=== PATIENT | female | born 1940 | race Caucasian/White ===

== ENCOUNTER 2020-06-07 12:38 | Outpatient (CLI) | payer MEDICARE, SELFPAY ==
--- NOTE | ~2020-06-07 | XR_ITS ---
EXAMINATION: XR knee LT min 4V DATE: 06/07/2020 13:37 INDICATION: Left knee pain. TECHNIQUE: 4 views of left knee were obtained. COMPARISON: None. FINDINGS: Bone alignment is normal. No fracture. There is moderate osteoarthritis of medial compartme nt and mild osteoarthritis of lateral and patellofemoral compartments. No knee joint effusion. IMPRESSION: 1. Moderate left knee osteoarthritis. Reviewed, dictated and finalized at location A.
--- NOTE | ~2020-06-07 | XR_ITS ---
EXAMINATION: XR lumbar spine 2-3V DATE: 06/07/2020 13:37 INDICATION: Left lower limb pain, neuropathy TECHNIQUE: Anteroposterior and lateral views of the lumbar spine, and cone-down lateral view of the l umbosacral junction were obtained. COMPARISON: 01/10/2013 FINDINGS: There are 2 mm of chronic retrolisthesis of L2 on L3 and 4 mm of chronic retrolisthesis of L5 on S1. There is moderate loss of intervertebral disc space height throughout the lumbar spine and severe loss of disc space height at L5-S1. The vertebral body heights are maintained. There is no fra cture. Advanced facet osteoarthritis is present in the lower lumbar spine. Small degenerative osteoph ytes project from the anterior endplates of multiple vertebral bodies. The bowel gas pattern is shashi l. Surgical clips in the right upper quadrant are likely from prior cholecystectomy. IMPRESSION: 1. Severe lumbar spondylosis without acute findings or significant interval change. Reviewed, dictated and finalized at location A. IMPRESSION: 1. Severe lumbar spondylosis without acute findings or significant interval randa nge.
--- NOTE | ~2020-06-07 | XR_ITS ---
EXAMINATION: XR hip LT min 2V DATE: 06/07/2020 13:37 INDICATION: Left hip pain. TECHNIQUE: 2 views of left hip were obtained. COMPARISON: None. FINDINGS: Bone alignment is normal. No fracture. There is mild left hip osteoarthritis. There is arti re lumbar spondylosis. IMPRESSION: 1. Mild left hip osteoarthritis. Reviewed, dictated and finalized at location A.
[2020-06-07 13:11] LABS: Basophils Absolute Auto 0.03 K/mm3 (0.00-0.10); Basophils Percent Auto 0.4 % (0.0-1.0); Eosinophils Percent Auto 2.9 % (1.0-6.0); Hematocrit 47.8 % (35.0-42.0); Hemoglobin 15.3 g/dL (11.7-13.8); Immature Granulocyte Absolute 0.01 K/mm3 (0.00-0.00); Immature Granulocyte Percent A 0.1 % (0.0-0.0); Lymphocytes Absolute Auto 1.41 K/mm3 (1.10-4.50); Lymphocytes Percent Auto 20.8 % (18.0-42.0); Mean Corpuscular Hemoglobin 30.8 pg (27.0-31.0); Mean Corpuscular Volume 96.4 fL (78.0-102.0); Mean Platelet Volume 10.4 fl (9.2-11.8); Monocytes Absolute Auto 0.47 K/mm3 (0.10-0.90); Monocytes Percent Auto 6.9 % (2.0-11.0); Neutrophils Absolute Auto 4.7 K/mm3 (1.7-7.2); Neutrophils Percent Auto 68.9 % (50.0-70.0); Platelet Count Result 157 K/mm3 (150-420); Red Blood Count 4.96 M/mm3 (4.20-5.40); Red Cell Distribution Width 12.5 % (11.6-14.4); White Blood Count 6.8 K/mm3 (4.8-10.8)
[2020-06-07 14:07] LABS: Alanine Aminotransferase 20 U/L (14-59); Alkaline Phosphatase 123 U/L (46-116); Anion Gap 9 mmol/L (8-16); Aspartate Amino Transferase 20 U/L (15-37); Bilirubin,Total 0.7 mg/dL (0.00-1.00); Blood Urea Nitrogen 22 mg/dL (7-18); Calcium 9.1 mg/dL (8.5-10.1); Carbon Dioxide 25 mmol/L (21-32); Chloride 106 mmol/L (98-108); Estimated Glomerular Filt Rate 52; Glucose 81 mg/dL (70-99); Osmolality Calculated 292 mOsm/kg (285-295); Potassium 4.1 mmol/L (3.5-5.1); Sodium 140 mmol/L (136-145); Thyroid Stimulating Hormone 0.61 uIU/mL (0.36-3.74); Total Protein 7.3 g/dL (6.4-8.2)
[2020-06-11 15:23] LABS: Methylmalonic Acid 178 nmol/L (87-318)
== END 2020-06-07 12:39 | disposition home or self-care (01) ==
PROVIDERS: PCP Internal Medicine; Visit Provider Internal Medicine
DX: R27.0 Ataxia, unspecified (principal); G62.9 Polyneuropathy, unspecified; M79.605 Pain in left leg
CPT/HCPCS: 36415; 72100; 73502; 73564; 80053; 83921; 84443; 85025

== ENCOUNTER 2020-06-12 10:48 | Outpatient (RCR) | payer MEDICARE, SELFPAY ==
--- NOTE | 2020-06-12 11:45 | PTOPEVAL ---
Thank you for referring Salena Angulo to [facility] [place]Note 2[place]? The patient is scheduled to be seen for therapy? ____x/week for ___ weeks. Please review, sign, date and return this plan of care SONIYA. I agree with and certify that the following plan of care is medically necessary. Referring Physician Date Admitting Provider: Attending Provider: Paco Strickland MD Referring Provider: *PT Outpatient Evaluation Start: 06/12/20 11:02 Freq: Status: Active Protocol: Document 06/12/20 11:02 [facility] (Rec: 06/12/20 11:44 [facility] [id number]) Therapy Assessment Status Assessment Status Assessment Status Evaluation Evaluation Information Problem Diagnosis abnormal gait, generalized weakness, OA lumbar spine Onset 06/10/20 Subjective Information patient reports she has been Query Text:As Reported By Patient/ having trouble with her Family balance, strength, and walking . she reports she fell into her car seat about 2 months ago. she reports her L leg slid out from under her, but reports she had had other leg already in the car. she reports she had a lot of pain in the L LE at the time that is not as bad now. she reports she had x-rays showing arthritis of the leg and the back. she reports she is struggling with getting around she reports she also has trouble with her balance. she reports she is limited in her cooking, cleaning, and home/self care. Prior Level of Function Comments Additional Prior Level of Function prior to march, patient Comments reports she was having issues with her balance, but activities were easier to complete. she reports she was using a cane prior to her fall and increased L LE pain. Pain Assessment Timing of Pain Assessment Timing of Pain Assessment Assessment Pain Scale Pain Scale Used Numeric (1 - 10) Self Report Pain Assessment Lower Back Reported Pain Level 7 Left Leg(s) Reported Pain Level 8 Pain Score Pain Score 8,7: Self Report Interventions Used Interventions Used By Clinicians Activity or ADL's
== END 2020-07-09 18:32 | disposition home or self-care (01) ==
LOC: CHSPT 10:48
PROVIDERS: PCP Internal Medicine; Visit Provider Internal Medicine
DX: M47.9 Spondylosis, unspecified (principal)
CPT/HCPCS: 97014; 97110; 97112; 97161; G0283

== ENCOUNTER 2021-10-22 08:46 | Outpatient (CLI) | payer MEDICARE, SELFPAY ==
[2021-10-22 09:01] LABS: Basophils Absolute Auto 0.03 K/mm3 (0.00-0.10); Basophils Percent Auto 0.5 % (0.0-1.0); Eosinophils Absolute Auto 0.13 K/mm3 (0.02-0.50); Eosinophils Percent Auto 2.4 % (1.0-6.0); Hematocrit 50.2 % (35.0-42.0); Hemoglobin 16.2 g/dL (11.7-13.8); Immature Granulocyte Absolute 0.02 K/mm3 (0.00-0.00); Immature Granulocyte Percent A 0.4 % (0.0-0.0); Lymphocytes Absolute Auto 1.37 K/mm3 (1.10-4.50); Lymphocytes Percent Auto 24.8 % (18.0-42.0); Mean Corpuscular HGB Conc 32.3 g/dL (32.0-36.0); Mean Corpuscular Hemoglobin 31.5 pg (27.0-31.0); Mean Corpuscular Volume 97.5 fL (78.0-102.0); Mean Platelet Volume 9.9 fl (9.2-11.8); Monocytes Absolute Auto 0.53 K/mm3 (0.10-0.90); Monocytes Percent Auto 9.6 % (2.0-11.0); Neutrophils Absolute Auto 3.4 K/mm3 (1.7-7.2); Neutrophils Percent Auto 62.3 % (50.0-70.0); Platelet Count Result 163 K/mm3 (150-420); Red Blood Count 5.15 M/mm3 (4.20-5.40); Red Cell Distribution Width 12.4 % (11.6-14.4); White Blood Count 5.5 K/mm3 (4.8-10.8)
[2021-10-22 09:47] LABS: Alanine Aminotransferase 19 U/L (14-59); Alkaline Phosphatase 119 U/L (46-116); Anion Gap 9 mmol/L (8-16); Bilirubin,Total 0.9 mg/dL (0.00-1.00); Blood Urea Nitrogen 17 mg/dL (7-18); Calcium 9.2 mg/dL (8.5-10.1); Carbon Dioxide 28 mmol/L (21-32); Chloride 107 mmol/L (98-108); Estimated Glomerular Filt Rate 55; Glucose 93 mg/dL (70-99); Osmolality Calculated 299 mOsm/kg (285-295); Potassium 4.2 mmol/L (3.5-5.1); Sodium 144 mmol/L (136-145)
[2021-10-22 10:02] LABS: Aspartate Amino Transferase 19 U/L (15-37)
== END 2021-10-22 08:47 | disposition home or self-care (01) ==
LOC: CHSLAB 08:51
PROVIDERS: PCP Internal Medicine; Visit Provider Internal Medicine
DX: I10 Essential (primary) hypertension (principal)
CPT/HCPCS: 36415; 80053; 84443; 85025

== ENCOUNTER 2021-11-06 15:25 | Outpatient (CLI) | payer MEDICARE, SELFPAY ==
--- NOTE | ~2021-11-06 | XR_ITS ---
XR hip RT min 2V 11/06/2021 15:48 Indication: Right hip pain Procedure: 2 views right hip Comparison: No prior studies for comparison. Findings: No fracture, subluxation or dislocation. There is anatomic alignment. Osteopenia. No signif icant soft tissue abnormality. No foreign bodies. Impression: 1: No acute bone or joint abnormality. Reviewed, dictated and finalized at location B. Impression: 1: No acute bone or joint abnormality.
== END 2021-11-06 15:26 | disposition home or self-care (01) ==
LOC: CHSIMG 15:27
PROVIDERS: PCP Internal Medicine; Visit Provider Internal Medicine
DX: M25.551 Pain in right hip (principal); M79.604 Pain in right leg
CPT/HCPCS: 73502

== ENCOUNTER 2021-11-07 11:32 | Outpatient (CLI) | payer MEDICARE, SELFPAY ==
--- NOTE | ~2021-11-07 | XR_ITS ---
EXAMINATION: XR chest 2V DATE: 11/07/2021 12:15 INDICATION: Shortness of breath. Atrial fibrillation. TECHNIQUE: Frontal and lateral views of the chest were obtained. COMPARISON: Chest 2 views 12/27/2009 FINDINGS: The chest demonstrates clear lungs without pneumonia, pleural effusion, or pneumothorax. Ca rdiomegaly is noted. Surgical clips in the right upper quadrant are likely from cholecystectomy. IMPRESSION: 1. Cardiomegaly. Reviewed, dictated and finalized at location A. IMPRESSION: 1. Cardiomegaly.
[2021-11-07 11:57] LABS: Appearance Urine Sl Cloudy (Clear); Bilirubin Urine Negative (Negative); Color Urine Light Yellow (Yellow); Glucose Urine UA Negative (Negative); Ketones Urine Negative (Negative); Leukocyte Esterase Ur 3+ (Negative); Nitrate Urine Positive (Negative); Protein Urine Negative (Negative); Urobilinogen Urine 0.2 mg/dL (0.2-1.0); pH Urine 6.5 (5.0-8.0)
[2021-11-07 11:57] LABS: Basophils Absolute Auto 0.02 K/mm3 (0.00-0.10); Basophils Percent Auto 0.3 % (0.0-1.0); Eosinophils Absolute Auto 0.12 K/mm3 (0.02-0.50); Eosinophils Percent Auto 1.6 % (1.0-6.0); Hematocrit 49.7 % (35.0-42.0); Immature Granulocyte Absolute 0.02 K/mm3 (0.00-0.00); Immature Granulocyte Percent A 0.3 % (0.0-0.0); Immature Platelet Fraction Pct 2.9 % (1.0-7.0); Lymphocytes Absolute Auto 1.32 K/mm3 (1.10-4.50); Lymphocytes Percent Auto 17.7 % (18.0-42.0); Mean Corpuscular HGB Conc 32.2 g/dL (32.0-36.0); Mean Corpuscular Hemoglobin 32.3 pg (27.0-31.0); Mean Corpuscular Volume 100.2 fL (78.0-102.0); Mean Platelet Volume 10.5 fl (9.2-11.8); Monocytes Absolute Auto 0.81 K/mm3 (0.10-0.90); Monocytes Percent Auto 10.8 % (2.0-11.0); Neutrophils Absolute Auto 5.2 K/mm3 (1.7-7.2); Neutrophils Percent Auto 69.3 % (50.0-70.0); Platelet Count Result 134 K/mm3 (150-420); Red Blood Count 4.96 M/mm3 (4.20-5.40); Red Cell Distribution Width 12.7 % (11.6-14.4); White Blood Count 7.5 K/mm3 (4.8-10.8)
[2021-11-07 12:01] LABS: Add Urine Microscopic? YES; Bacteria Urine 4+ /hpf; Blood Urine Trace-Intact (Negative); RBC Urine None seen /hpf (0-2); Squamous Epithelial Cell Urine Few /hpf (Few); WBC Urine 16-20 /hpf (0-3)
[2021-11-07 12:38] LABS: Alanine Aminotransferase 10 U/L (14-59); Albumin Level 3.5 g/dL (3.4-5.0); Alkaline Phosphatase 119 U/L (46-116); Anion Gap 7 mmol/L (8-16); Aspartate Amino Transferase 29 U/L (15-37); Bilirubin,Total 1.4 mg/dL (0.00-1.00); Blood Urea Nitrogen 15 mg/dL (7-18); Calcium 9.1 mg/dL (8.5-10.1); Carbon Dioxide 30 mmol/L (21-32); Chloride 104 mmol/L (98-108); Estimated Glomerular Filt Rate 57; Free T3 2.99 pg/mL (2.18-3.98); Free T4 Free Thyroxine 1.21 ng/dL (0.76-1.46); Glucose 97 mg/dL (70-99); NT Pro B Type Natriuretic Pept 830 pg/mL (0-450); Osmolality Calculated 292 mOsm/kg (285-295); Potassium 4.5 mmol/L (3.5-5.1); Sodium 141 mmol/L (136-145); Thyroid Stimulating Hormone 0.38 uIU/mL (0.36-3.74); Total Protein 6.5 g/dL (6.4-8.2)
== END 2021-11-07 11:33 | disposition home or self-care (01) ==
LOC: CHSLAB 11:35
PROVIDERS: PCP Internal Medicine; Visit Provider Internal Medicine
DX: I48.91 Unspecified atrial fibrillation (principal); R06.00 Dyspnea, unspecified
CPT/HCPCS: 36415; 71046; 80053; 81001; 83880; 84439; 84443; 84481; 85025; 85055

== ENCOUNTER 2021-11-08 07:32 | Outpatient (CLI) | payer MEDICARE, SELFPAY ==
--- NOTE | ~2021-11-08 | MR_ITS ---
EXAMINATION: MR lumbar spine wo [facility] EXAM DATE: 11/08/2021 08:19 INDICATION: Right hip and leg pain. TECHNIQUE: Multi-sequential, multiplanar MR images of the lumbar spine were obtained without contrast . Sagittal T1, T2, T2 fat saturation images. Axial T2 weighted images. There is no prior study for comparison. FINDINGS: Moderate to severe disc disease L3-S1, moderate L1-L3. The conus medullaris terminates at t he L1 level and has normal signal intensity and morphology. There is 4 mm retrolisthesis L2 on L3, 3 mm anterolisthesis L4 on L5. Mild diffuse loss of lumbar vertebral body heights. There are no suspic ious marrow signal abnormalities. Paraspinal soft tissue is unremarkable. Level by level evaluation: T12-L1: Disc does not extend beyond the endplate margin. Facet arthropathy: None. Neural foraminal stenosis: No stenosis. Central canal stenosis: No stenosis. L1-L2: There is a mild diffuse disc bulge. Facet arthropathy: Mild. Neural foraminal stenosis: No stenosis. Central canal stenosis: No stenosis. L2-L3: There is a mild to moderate diffuse disc bulge. Facet arthropathy: Mild to moderate. Neural foraminal stenosis: Mild to moderate right, mild left. Central canal stenosis: Mild. L3-L4: There is a moderate diffuse disc bulge. Facet arthropathy: Moderate . Ligamentum flavum enlargement. Neural foraminal stenosis: Moderate right, mild to moderate left. Central canal stenosis: Severe. L4-L5: There is a moderate diffuse disc bulge. Facet arthropathy: Moderate . Ligamentum flavum enlargement. Neural foraminal stenosis: Moderate to severe right, mild to moderate left. Central canal stenosis: Moderate to severe. L5-S1: There is a moderate diffuse disc bulge. Facet arthropathy: Mild to moderate. Neural foraminal stenosis: Mild to moderate left, mild right. Central canal stenosis: Mild. IMPRESSION: 1. L3-4 severe, L4-5 moderate to severe central canal stenosis. 2. L4-5 moderate to severe right neural foraminal stenosis. 3. Less spondylosis other levels. Reviewed, dictated and finalized at location G.
== END 2021-11-08 07:33 | disposition home or self-care (01) ==
LOC: CHSIMG 07:35
PROVIDERS: PCP Internal Medicine; Visit Provider Internal Medicine
DX: M25.551 Pain in right hip (principal); M79.604 Pain in right leg
CPT/HCPCS: 72148

== ENCOUNTER 2021-11-10 12:47 | Outpatient (CLI) | payer MEDICARE, SELFPAY ==
--- NOTE | 2021-11-10 13:07 | ECHO_ITS ---
Patient Info Name: Salena Angulo Age: 81 years : 1940 Gender: Female Ht: 44 in Wt: 186 lbs BSA: 1.71 m2 HR: 90 bpm BP: 127 / 64 mmHg Technical Quality: Good Exam Date: 11/10/2021 12:54 PM Exam Location: [facility] Patient Status: Outpatient Admit Date: 11/10/2021 Staff Ordering Physician: Paco Strickland MD Sales And Service Specialist: Libby Park Attending Provider: Paco Strickland MD Exam Type: CA echo doppler color flow Study Info Indications I48.1 - Persistent atrial fibrillation Complete two-dimensional, color flow and Doppler transthoracic echocardiogram is performed. Strain analysis performed. Summary 1. Complete two-dimensional, color flow and Doppler transthoracic echocardiogram is performed. 2. Left ventricular chamber dimension is normal. 3. Left ventricular systolic function is normal, estimated at 60-65%. 4. There is mildly increased left ventricular wall thickness. 5. The left ventricular diastolic function is grade III diastolic dysfunction. 6. E/e' 14 is mildly elevated. 7. Global longitudinal strain is mildly abnormal at -16.2%. 8. Left atrial chamber dimension is mildly enlarged. 9. The mitral valve has mildly calcified annulus. 10. There is mild to moderate mitral valve regurgitation. 11. There is mild tricuspid valve regurgitation. 12. Mild pulmonary hypertension, estimated pulmonary arterial systolic pressure is 44 mmHg. Left Ventricle E/e' 14 is mildly elevated. Global longitudinal strain is mildly abnormal at -16.2%. Left ventricular chamber dimension is normal. Left ventricular systolic function is normal, estimated at 60-65%. There is mildly increased left ventricular wall thickness. The left ventricular diastolic function is grade III diastolic dysfunction. Right Ventricle Right ventricular chamber dimension is normal. Right ventricular systolic function is normal. Left Atria Left atrial chamber dimension is mildly enlarged. Right Atria Right atrial chamber dimension is normal. Aortic Valve The aortic valve is trileaflet. There is no aortic valve stenosis. There is no aortic valve regurgitation. Pulmonic Valve There is no pulmonic regurgitation. Mitral Valve The mitral valve has mildly calcified annulus. There is no mitral valve stenosis. There is mild to moderate mitral valve regurgitation. Tricuspid Valve There is mild tricuspid valve regurgitation. Mild pulmonary hypertension, estimated pulmonary arterial systolic pressure is 44 mmHg. Pericardium/Pleural There is no pericardial effusion. Inferior Vena Cava Normal inferior vena cava with >50% collapse upon inspiration consistent with normal right atrial pressure, 5 mmHg. Aorta The aortic root size at the sinus of Valsalva is normal. Left Ventricular Outflow Tract Name Value Normal LVOT 2D LVOT Diameter 1.8 cm LVOT Doppler LVOT Peak Velocity 113 cm/s LVOT Peak Gradient 5 mmHg LVOT Mean Gradient 3 mmHg LVOT VTI 21 cm LVOT VTI/AV VTI Ratio 0.9
== END 2021-11-10 12:48 | disposition home or self-care (01) ==
PROVIDERS: PCP Internal Medicine; Visit Provider Internal Medicine
DX: I48.91 Unspecified atrial fibrillation (principal)
CPT/HCPCS: 93306

== ENCOUNTER 2021-11-24 09:50 | Outpatient (RCR) | payer MEDICARE, SELFPAY ==
--- NOTE | 2021-11-24 10:56 | PTOPEVAL ---
Thank you for referring Salena Angulo to [facility].? The patient is scheduled to be seen for therapy? ____x/week for ___ weeks. Please review, sign, date and return this plan of care SONIYA. I agree with and certify that the following plan of care is medically necessary. Referring Physician Date Admitting Provider: Attending Provider: nitin white Referring Provider: WILIAN Outpatient Evaluation Start: 11/24/21 10:05 Freq: Status: Active Protocol: Document 11/24/21 10:10 [facility] (Rec: 11/24/21 10:56 [facility] [id number]) Therapy Assessment Status Assessment Status Assessment Status Evaluation Evaluation Information Problem Diagnosis lumbar radiculopathy, unsteady gait Onset 11/19/21 Subjective Information patient reports she has a bad Query Text:As Reported By Patient/ leg. she reports her MD says Family she has a pinched nerve. she reports her MRI shows severe stenosis of the lumbar spine. she reports she also has bulged discs. she reports is having pain in the R leg, looses her balance, and weakness. she reports her pain in the R leg was worse when taking pain meds so she is no longer taking them. she reports the pain is down the front of the R LE. Prior Level of Function Comments Additional Prior Level of Function patient reports she has been Comments having pain for weeks. she reports prior to the pain beginning she was doing well minus so balance issues she was keeping up on at fall prevention class. Pain Assessment Timing of Pain Assessment Timing of Pain Assessment Assessment Pain Scale Pain Scale Used Numeric (1 - 10) Self Report Pain Assessment Right Buttock(s) Reported Pain Level 3 Pain Frequency Acute,Continuous Greatest Pain Intensity 8 Pain Score Pain Score 3: Self Report Interventions Used Interventions Used By Clinicians Medication,Rest Cervical and Lumbar ROM Lumbar ROM Lumbar Flexion Active Knee Query Text:Hands to: Lumbar Extension (0-40) 0 Query Text:Active in Degrees Lumbar Comments patient unable to perform lumbar arom extension. she
--- NOTE | 2021-12-10 15:13 | PTOPEVAL ---
Thank you for referring Salena Angulo to [facility].? The patient is scheduled to be seen for therapy? __2__x/week for 5 visits. Please review, sign, date and return this plan of care SONIYA. I agree with and certify that the following plan of care is medically necessary. Referring Physician Date Admitting Provider: Attending Provider: nitin white Referring Provider: *PT Outpatient Evaluation Start: 11/24/21 10:05 Freq: Status: Active Protocol: Document 12/10/21 14:00 [facility] (Rec: 12/10/21 15:13 [facility] [id number]) Therapy Assessment Status Assessment Status Assessment Status Evaluation Evaluation Information Problem Diagnosis lumbar radiculopathy, unsteady gait Onset 11/19/21 Subjective Information Pt. reports current pain is 4/ Query Text:As Reported By Patient/ 10. She states that she still Family gets pain into the right leg, but less frequently. She denies any recent falls or episodes of LOB. She states that she is moving better since beginning therapy. Pain Assessment Timing of Pain Assessment Timing of Pain Assessment Pre-Treatment Pain Scale Pain Scale Used Numeric (1 - 10) Self Report Pain Assessment Right Buttock(s) Reported Pain Level 4 Pain Score Pain Score 4: Self Report Interventions Used Interventions Used By Clinicians Activity or ADL's,Exercise, Standing Balance Assessment Tinetti Balance Assessment Sitting Balance Steady, safe Ability to Arise Able, w/o using arms Attempts to Arise Arises on 1st attempt Immediate Standing Balance Steady w/o support Standing Balance Narrow stance w/o support Nudged Response Staggers, catches self Standing with Eyes Closed Unsteady Step Pattern Turning 360 Degrees Discontinuous steps Stability Turning 360 Degrees Steady Sitting Down Uses arms or unsteady Initiation of Gait Hesitancy, mult. attempts Right Foot Step Length Does not pass stance ft. Right Foot Step Height Completely clears floor Left Foot Step Length Does not pass stance foot Left Foot Step Height Completely clears floor Step Symmetry Step length appears equal Step Continuity Steps appear continuous Path Description Marked deviation Trunk Description Marked sway or uses aide Walking Stance Heels together Assistive Devices Used Yes Tinetti Composite Score (Balance + Gait) 17 (/28)
--- NOTE | 2021-12-30 15:02 | PTOPEVAL ---
Thank you for referring Salena Angulo to [facility].? The patient is scheduled to be seen for therapy? ____x/week for ___ weeks. Please review, sign, date and return this plan of care SONIYA. I agree with and certify that the following plan of care is medically necessary. Referring Physician Date Admitting Provider: Attending Provider: nitin white Referring Provider: *PT Outpatient Evaluation Start: 11/24/21 10:05 Freq: Status: Active Protocol: Document 12/30/21 14:02 [facility] (Rec: 12/30/21 15:01 [facility] [id number]) Evaluation Information Problem Diagnosis lumbar radiculopathy, unsteady gait Onset 11/19/21 Additional Evaluation Detail oswestry = 4% functionally declined Subjective Information patient reports she is feeling Query Text:As Reported By Patient/ Better overall. she reports Family she is managing her pain with tylenol now and had 3 injections about 1 week ago. patient reports no longer feeling pain down the R LE. patient reports she is ready to get back to fall prevention class. Pain Assessment Timing of Pain Assessment Timing of Pain Assessment Assessment Pain Scale Pain Scale Used Numeric (1 - 10) Self Report Pain Assessment Right Buttock(s) Reported Pain Level 1 Greatest Pain Intensity 5 Pain Score Pain Score 1: Self Report Interventions Used Interventions Used By Clinicians Activity or ADL's,Education, Exercise,Standing Lower Extremity Muscle Strength Testing General Lower Extremity Strength Gross Lower Extremity Strength 4+/5 bilateral ankle DF 5/5 bilateral knee flex and ext 4/5 R hip flex 4+/5 L hip flex Muscle Length Testing Muscle Length Testing Left Hamstring Length 20 Query Text:(90 - 90 Position) Right Hamstring Length 20 Query Text:(90 - 90 Position) Balance Assessment Tinetti Balance Assessment Sitting Balance Steady, safe Ability to Arise Able, w/o using arms Attempts to Arise Arises on 1st attempt Immediate Standing Balance Steady w/o support Standing Balance Narrow stance w/o support Nudged Response Staggers, catches self Standing with Eyes Closed Unsteady Step Pattern Turning 360 Degrees Discontinuous steps Stability Turning 360 Degrees Steady Sitting Down
== END 2021-12-30 15:11 | disposition home or self-care (01) ==
LOC: CHSPT 09:50
DX: M54.16 Radiculopathy, lumbar region (principal)
CPT/HCPCS: 97014; 97110; 97112; 97161; 97530; G0283

== ENCOUNTER 2022-04-17 14:10 | Outpatient (CLI) | payer MEDICARE, SELFPAY ==
[2022-04-17 14:28] LABS: Basophils Absolute Auto 0.03 K/mm3 (0.00-0.10); Basophils Percent Auto 0.5 % (0.0-1.0); Eosinophils Absolute Auto 0.13 K/mm3 (0.02-0.50); Eosinophils Percent Auto 2.1 % (1.0-6.0); Hematocrit 48.2 % (35.0-42.0); Hemoglobin 15.6 g/dL (11.7-13.8); Immature Granulocyte Absolute 0.01 K/mm3 (0.00-0.00); Immature Granulocyte Percent A 0.2 % (0.0-0.0); Lymphocytes Absolute Auto 1.57 K/mm3 (1.10-4.50); Mean Corpuscular HGB Conc 32.4 g/dL (32.0-36.0); Mean Corpuscular Hemoglobin 31.4 pg (27.0-31.0); Mean Platelet Volume 10.2 fl (9.2-11.8); Monocytes Absolute Auto 0.52 K/mm3 (0.10-0.90); Monocytes Percent Auto 8.3 % (2.0-11.0); Neutrophils Percent Auto 63.9 % (50.0-70.0); Platelet Count Result 148 K/mm3 (150-420); Red Blood Count 4.97 M/mm3 (4.20-5.40); Red Cell Distribution Width 12.4 % (11.6-14.4); White Blood Count 6.3 K/mm3 (4.8-10.8)
[2022-04-17 14:51] LABS: Alanine Aminotransferase 18 U/L (14-59); Albumin Level 3.8 g/dL (3.4-5.0); Alkaline Phosphatase 128 U/L (46-116); Anion Gap 7 mmol/L (8-16); Aspartate Amino Transferase 21 U/L (15-37); Bilirubin,Total 0.6 mg/dL (0.00-1.00); Blood Urea Nitrogen 20 mg/dL (7-18); Calcium 9.2 mg/dL (8.5-10.1); Carbon Dioxide 25 mmol/L (21-32); Chloride 106 mmol/L (98-108); Estimated Glomerular Filt Rate 55; Glucose 100 mg/dL (70-99); NT Pro B Type Natriuretic Pept 1516 pg/mL (0-450); Osmolality Calculated 288 mOsm/kg (285-295); Potassium 4.2 mmol/L (3.5-5.1); Sodium 138 mmol/L (136-145); Total Protein 6.9 g/dL (6.4-8.2)
== END 2022-04-17 14:11 | disposition home or self-care (01) ==
LOC: CHSLAB 14:12
PROVIDERS: PCP Internal Medicine; Visit Provider Internal Medicine
DX: I48.91 Unspecified atrial fibrillation (principal); I50.9 Heart failure, unspecified
CPT/HCPCS: 36415; 80053; 83880; 85025

== ENCOUNTER 2022-05-06 13:30 | Outpatient (RCR) | payer MEDICARE, SELFPAY ==
--- NOTE | 2022-05-06 14:04 | PTOPEVAL1 ---
Assessment and note entered by JT File, PT Evaluation Information Assessment Status Evaluation Diagnosis unsteady gait Onset 04/30/22 Subjective Information patient reports she is returning to therapy for her balance issues. she reports she has had no falls. she reports she does feel unsteady when she is up on her feet and walking. she reports at home she has difficulty getting around due to her balance. she reports she does try and wlak at home without a cane, but reports she needs it for safety most of the time. she reports she is unable to stand and cook a long meal. Reported Pain Level Pain Score 1: Self Report Assessment PT Clinical Summary mr.s urias presents to skilled PT services for evaluation and treatment of unsteady gait. she presents today with weakness in the bilateral LE's , unsteady balance, and decreased propriocpetion/ righting reactions. she would do well to attend skilled PT to improve her objective/funcitonal deficits and progress towards a return to her prior level safety, functional activity performance, and quality of life. Plan of Care PT Services Indicated Yes Treatment Frequency and 2x weekly for 8 visits Duration These treatments will address the objective and functional deficits as defined above. The patient will be advanced safely and appropriately in order for the patient to progress towards his/her prior level of function. Additional exercises will be introduced and as well as a comprehensive home exercise program upon discharge, if needed, ?to ensure carryover of functional gains achieved in the clinic. This treatment plan has been reviewed and agreement upon by the patient.
--- NOTE | 2022-06-03 13:58 | PTOPDC ---
Assessment and note entered by JT File, PT Evaluation Information Assessment Status Discharge Diagnosis unsteady gait Onset 04/30/22 Subjective Information patient reports she feels good this date. she reports she has had no falls. she reports she still feels like she walks slow, but she reports her fast walking days are probably over. Reported Pain Level Pain Score 1: Self Report Assessment PT Clinical Summary mrs. urias presents to skilled PT services for her 8th skilled PT visit. as of this date, she has met more than 70% of goals for skilled PT. she would do well to DC skilled PT and return to independent HEP and fall class participation. Plan of Care Treatment Frequency and DC to independent HEP and fall class participation Duration
== END 2022-06-03 15:26 | disposition home or self-care (01) ==
LOC: CHSPT 13:30
DX: R26.81 Unsteadiness on feet (principal)
CPT/HCPCS: 97110; 97161; 97530

== ENCOUNTER 2022-09-08 11:58 | Outpatient (CLI) | payer MEDICARE, OTHER, SELFPAY ==
--- NOTE | ~2022-09-08 | XR_ITS ---
XR knee RT 3V DATE: 09/08/2022 12:27 INDICATION: Bilateral osteoarthritis TECHNIQUE: AP, lateral, sunrise views COMPARISON: 01/10/2013 FINDINGS: There is very prominent osteoarthritis of the right knee, especially severe at the medial c ompartment, where there is nearly complete obliteration of joint space. There is periarticular spurr ing at all 3 compartments. There is hypertrophic change of the tibial spines. No fracture or dislocation or joint effusion. There is diffuse osteopenia. No periosteal reaction or bone destruction. No radiopaque interarticular loose body or chondrocalcinosis is noted. IMPRESSION: Tricompartment osteoarthritis, particularly severe at the medial compartment Reviewed, dictated and finalized at location L. NAUTICAL ENGINEERING PROFESSOR IMPRESSION: Tricompartment osteoarthritis, particularly severe at the medial co mpartment
--- NOTE | ~2022-09-08 | XR_ITS ---
XR knee LT 3V DATE: 09/08/2022 12:26 INDICATION: Bilateral knee pain, osteoarthritis TECHNIQUE: AP, lateral, sunrise views COMPARISON: 06/07/2020 left knee FINDINGS: There is tricompartment osteoarthritis, most prominent at the medial compartment. Osteopenia. No fracture or dislocation or joint effusion. No periosteal reaction or bone destructio n. No radiopaque intraarticular loose body or chondrocalcinosis. IMPRESSION: Tricompartment osteoarthritis, severe at medial compartment Reviewed, dictated and finalized at location L. ER UP
== END 2022-09-08 11:59 | disposition home or self-care (01) ==
LOC: CHSIMG 12:01
PROVIDERS: PCP Internal Medicine; Visit Provider Nurse Practitioner Family
DX: M17.0 Bilateral primary osteoarthritis of knee (principal)
CPT/HCPCS: 73562

== ENCOUNTER 2023-01-19 07:52 | Outpatient (CLI) | payer MEDICARE, SELFPAY ==
[2023-01-19 08:16] LABS: Basophils Absolute Auto 0.03 K/mm3 (0.00-0.10); Basophils Percent Auto 0.5 % (0.0-1.0); Eosinophils Absolute Auto 0.21 K/mm3 (0.02-0.50); Eosinophils Percent Auto 3.8 % (1.0-6.0); Hematocrit 50.5 % (35.0-42.0); Hemoglobin 16.2 g/dL (11.7-13.8); Immature Granulocyte Absolute 0.01 K/mm3 (0.00-0.00); Immature Granulocyte Percent A 0.2 % (0.0-0.0); Immature Platelet Fraction Pct 2.8 % (1.0-7.0); Lymphocytes Absolute Auto 1.43 K/mm3 (1.10-4.50); Lymphocytes Percent Auto 25.9 % (18.0-42.0); Mean Corpuscular HGB Conc 32.1 g/dL (32.0-36.0); Mean Corpuscular Hemoglobin 30.9 pg (27.0-31.0); Mean Corpuscular Volume 96.4 fL (78.0-102.0); Mean Platelet Volume 10.3 fl (9.2-11.8); Monocytes Absolute Auto 0.53 K/mm3 (0.10-0.90); Monocytes Percent Auto 9.6 % (2.0-11.0); Neutrophils Absolute Auto 3.3 K/mm3 (1.7-7.2); Platelet Count Result 145 K/mm3 (150-420); Red Blood Count 5.24 M/mm3 (4.20-5.40); Red Cell Distribution Width 12.1 % (11.6-14.4); White Blood Count 5.5 K/mm3 (4.8-10.8)
[2023-01-19 08:35] LABS: Appearance Urine Slightly Cloudy (Clear); Bilirubin Urine Negative (Negative); Blood Urine Negative (Negative); Color Urine Light Yellow (Yellow); Glucose Urine UA Negative (Negative); Ketones Urine Negative (Negative); Leukocyte Esterase Ur 3+ (Negative); Nitrate Urine Positive (Negative); Protein Urine Negative (Negative); Specific Grav Ur 1.015 (1.010-1.020); Urobilinogen Urine 0.2 mg/dL (0.2-1.0); pH Urine 7.5 (5.0-8.0)
[2023-01-19 08:45] LABS: Add Urine Microscopic? YES; RBC Urine None seen /hpf (0-2); WBC Urine 16-20 /hpf (0-3)
[2023-01-19 08:46] LABS: Bacteria Urine 2+ /hpf; Squamous Epithelial Cell Urine Few /hpf (Few)
[2023-01-19 09:34] LABS: Alanine Aminotransferase 18 U/L (14-59); Albumin Level 3.9 g/dL (3.4-5.0); Alkaline Phosphatase 122 U/L (46-116); Anion Gap 5 mmol/L (8-16); Aspartate Amino Transferase 23 U/L (15-37); Blood Urea Nitrogen 15 mg/dL (7-18); Calcium 9.3 mg/dL (8.5-10.1); Carbon Dioxide 32 mmol/L (21-32); Chloride 107 mmol/L (98-108); Estimated Glomerular Filt Rate 60; Glucose 86 mg/dL (70-99); NT Pro B Type Natriuretic Pept 1655 pg/mL (0-450); Osmolality Calculated 297 mOsm/kg (285-295); Potassium 5.2 mmol/L (3.5-5.1); Sodium 144 mmol/L (136-145); Thyroid Stimulating Hormone 0.94 uIU/mL (0.36-3.74); Total Protein 6.6 g/dL (6.4-8.2)
== END 2023-01-19 07:53 | disposition home or self-care (01) ==
LOC: CHSLAB 07:55
PROVIDERS: PCP Internal Medicine; Visit Provider Internal Medicine
DX: I48.91 Unspecified atrial fibrillation (principal); I50.9 Heart failure, unspecified; N39.0 Urinary tract infection, site not specified; R82.90 Unspecified abnormal findings in urine
CPT/HCPCS: 36415; 80053; 81001; 83880; 84443; 85025; 85055; 87077; 87086; 87088; 87186

== ENCOUNTER 2023-07-06 08:24 | Outpatient (CLI) | payer MEDICARE, SELFPAY ==
--- NOTE | 2023-07-06 08:36 | ECG_ITS ---
Measurements Intervals [place] Rate: 66 P: [place]: 0 QRS: 125 QRSD: 66 T: 25 QT: 383 QTc: 401 Interpretive Statements ATRIAL FIBRILLATION RIGHT AXIS DEVIATION LOW VOLTAGE- PRECORDIAL LEADS ANTEROSEPTAL INFARCT, AGE INDETERMINATE BASELINE ARTIFACT- I, II, III, AVR, AVF ABNORMAL ECG NO PREVIOUS ECG AVAILABLE FOR COMPARISON Electronically Signed On 07-06-2023 10:50:33 [employer] by Alistair Wallace D.O.
== END 2023-07-06 08:25 | disposition home or self-care (01) ==
LOC: CHSCARD 08:27
PROVIDERS: PCP Internal Medicine; Visit Provider Internal Medicine Cardiovascular Disease
DX: I48.91 Unspecified atrial fibrillation (principal); R94.31 Abnormal electrocardiogram [ECG] [EKG]
CPT/HCPCS: 93005

== ENCOUNTER 2023-08-26 17:26 | Emergency (ER) | payer OTHER, SELFPAY ==
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
[2023-08-26 17:26] VITALS: BP 169/74; PULSE 80; RESP 18; TEMP 36.2; O2SAT 97
[2023-08-26 18:55] LABS: Alanine Aminotransferase 16 U/L (14-59); Albumin Level 3.6 g/dL (3.4-5.0); Alkaline Phosphatase 113 U/L (46-116); Anion Gap 6 mmol/L (8-16); Aspartate Amino Transferase 16 U/L (15-37); Bilirubin,Total 0.6 mg/dL (0.00-1.00); Blood Urea Nitrogen 17 mg/dL (7-18); Calcium 9.4 mg/dL (8.5-10.1); Carbon Dioxide 31 mmol/L (21-32); Chloride 106 mmol/L (98-108); Creatine Kinase 45 U/L (26-192); Estimated Glomerular Filt Rate 53; Glucose 107 mg/dL (70-99); Osmolality Calculated 297 mOsm/kg (285-295); Potassium 3.9 mmol/L (3.5-5.1); Sodium 143 mmol/L (136-145); Total Protein 6.5 g/dL (6.4-8.2)
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
[2023-08-26 19:28] VITALS: BP 140/85; PULSE 78; RESP 18; TEMP 36.5; O2SAT 99
== END 2023-08-26 19:42 | disposition home or self-care (01) ==
PROVIDERS: Emergency Provider Emergency Medicine; PCP Internal Medicine
DX: S80.12XA Contusion of left lower leg, initial encounter (principal); S16.1XXA Strain of muscle, fascia and tendon at neck level, initial encounter; Z86.73 Personal history of transient ischemic attack (TIA), and cerebral infarction without residual deficits; Z79.82 Long term (current) use of aspirin; Z79.899 Other long term (current) drug therapy; V89.2XXA Person injured in unspecified motor-vehicle accident, traffic, initial encounter
CPT/HCPCS: 36415; 70450; 72125; 72128; 73080; 73552; 80053; 82550; 99284

== ENCOUNTER 2023-09-03 09:57 | Outpatient (RCR) | payer OTHER, MEDICARE, SELFPAY ==
--- NOTE | 2023-09-03 11:07 | OPREHPOC ---
Outpatient Therapy Plan of Care This is a Multidisciplinary Plan of Care that may contain components documented by all disciplines (PT, OT, and ST.) PT Problem 1 PT Problem #1 Knowledge Deficit PT Goal 1 Goal 1. independent and compliant with HEP Target Visit 6 PT Problem 2 PT Problem #2 Impaired Strength PT Goal 1 Goal 1. improve bilateral UE strength to 5/5 2. improve bilateral hip strength to 4/5 or better 3. improve bilateral knee and ankle DF to 5/5 Target Visit 12 PT Problem 3 PT Problem #3 Pain PT Goal 1 Goal 1. decrease pain at worst to 3/10 or less in the neck and LE's Target Visit 12 PT Problem 4 PT Problem #4 Impaired Functional Mobil PT Goal 1 Goal 1. LEFS to display less than 50% functional deficits 2. NDI to display less than 30 % functional deficits 3. patient to ambulate 300ft without rest with most appropiate AD 4. patient to tolerate standing at home for more than 30 minutes to cook and clean 5. patient to return to driving community distances without limitations due to neck pain. Target Visit 12
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
--- NOTE | 2023-10-01 13:56 | OPREHPOC ---
Outpatient Therapy Plan of Care This is a Multidisciplinary Plan of Care that may contain components documented by all disciplines (PT, OT, and ST.) PT Problem 1 PT Problem #1 Knowledge Deficit PT Goal 1 Goal 1. independent and compliant with HEP Target Visit 6 Progress Met PT Problem 2 PT Problem #2 Impaired Strength PT Goal 1 Goal 1. improve bilateral UE strength to 5/5 2. improve bilateral hip strength to 4/5 or better 3. improve bilateral knee and ankle DF to 5/5 Target Visit 12 Progress Not Met PT Problem 3 PT Problem #3 Pain PT Goal 1 Goal 1. decrease pain at worst to 3/10 or less in the neck and LE's Target Visit 12 Progress Not Met PT Problem 4 PT Problem #4 Impaired Functional Mobil PT Goal 1 Goal 1. LEFS to display less than 50% functional deficits 2. NDI to display less than 30 % functional deficits 3. patient to ambulate 300ft without rest with most appropiate AD 4. patient to tolerate standing at home for more than 30 minutes to cook and clean 5. patient to return to driving community distances without limitations due to neck pain. Target Visit 12 Progress Partially Met
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
--- NOTE | 2023-10-27 14:06 | OPREHPOC ---
Outpatient Therapy Plan of Care This is a Multidisciplinary Plan of Care that may contain components documented by all disciplines (PT, OT, and ST.) PT Problem 1 PT Problem #1 Knowledge Deficit PT Goal 1 Goal 1. independent and compliant with HEP Target Visit 6 Progress Met PT Problem 2 PT Problem #2 Impaired Strength PT Goal 1 Goal 1. improve bilateral UE strength to 5/5. 2. improve bilateral hip strength to 4/5 or better . not met 3. improve bilateral knee and ankle DF to 5/5. met Target Visit 18 Progress Partially Met PT Problem 3 PT Problem #3 Pain PT Goal 1 Goal 1. decrease pain at worst to 3/10 or less in the neck and LE's Target Visit 18 Progress Met PT Problem 4 PT Problem #4 Impaired Functional Mobil PT Goal 1 Goal 1. LEFS to display less than 50% functional deficits. nearly met 2. NDI to display less than 30 % functional deficits. met 3. patient to ambulate 300ft without rest with most appropriate AD. met 4. patient to tolerate standing at home for more than 30 minutes to cook and clean. met 5. patient to return to driving community distances without limitations due to neck pain. met Target Visit 18 Progress Partially Met PT Goal 2 Goal patient to ambulate 6 minute walk test without rest. Target Visit 18 Progress Met
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
== END 2023-10-27 14:29 | disposition home or self-care (01) ==
LOC: CHSPT 09:57
PROVIDERS: PCP Internal Medicine; Visit Provider Internal Medicine
DX: M54.2 Cervicalgia (principal); R53.1 Weakness; M79.606 Pain in leg, unspecified
CPT/HCPCS: 97014; 97016; 97110; 97112; 97140; 97150; 97161; 97530; G0283

== ENCOUNTER 2025-01-26 07:40 | Outpatient (CLI) | payer MEDICARE, SELFPAY ==
[2025-01-26 08:33] LABS: Hemoglobin 15.7 g/dL (11.7-13.8); Mean Corpuscular HGB Conc 32.7 g/dL (32-36); Mean Corpuscular Hemoglobin 30.9 pg (27.0-31.0); Mean Corpuscular Volume 94.5 fL (78.0-102.0); Mean Platelet Volume 10.6 fl (9.2-11.8); Platelet Count Result 153 K/mm3 (150-420); Red Blood Count 5.08 M/mm3 (4.20-5.40); Red Cell Distribution Width 12.4 % (11.6-14.4); White Blood Count 4.7 K/mm3 (4.8-10.8)
[2025-01-26 12:20] LABS: Alanine Aminotransferase 13 U/L (6-35); Albumin Level 3.9 g/dL (3.5-5.1); Alkaline Phosphatase 115 U/L (38-126); Anion Gap 5 mmol/L (4-12); Aspartate Amino Transferase 27 U/L (14-36); Bilirubin,Total 1.4 mg/dL (0.2-1.3); Blood Urea Nitrogen 15 mg/dL (7-17); Carbon Dioxide 25 mmol/L (22-30); Chloride 109 mmol/L (98-107); Estimated Glomerular Filt Rate > 60; Glucose 84 mg/dL (65-110); Osmolality Calculated 287 mOsm/kg (285-295); Potassium 4.1 mmol/L (3.4-5.0); Sodium 139 mmol/L (137-145); Total Protein 6.5 g/dL (6.3-8.2)
[2025-01-26 12:34] LABS: NT Pro B Type Natriuretic Pept 1450 pg/mL (19.9-100)
[2025-01-26 12:55] LABS: Thyroid Stimulating Hormone 0.925 uIU/mL (0.465-4.680)
== END 2025-01-26 07:41 | disposition home or self-care (01) ==
LOC: CHSLAB 07:43
PROVIDERS: PCP Internal Medicine; Visit Provider Internal Medicine
DX: I10 Essential (primary) hypertension (principal); I48.91 Unspecified atrial fibrillation; I50.9 Heart failure, unspecified
CPT/HCPCS: 36415; 80053; 83880; 84443; 85027